=== PATIENT | female | born 2000 | race African-American/Black ===

== ENCOUNTER 2021-06-08 06:10 | Emergency (ER) | payer OTHER, SELFPAY ==
--- NOTE | ~2021-06-08 | XR_ITS ---
XR chest 1V portable DATE: 06/08/2021 07:52 INDICATION: Cough, fever TECHNIQUE: Portable AP chest on 06/04/2021 at 0748 hours COMPARISON: None FINDINGS: Normal heart size. No hilar or mediastinal enlargement. The lungs are clear of infiltrate o r consolidation. No pleural effusion or pulmonary vascular congestion or pneumothorax. Included skele zeeshan structures are unremarkable. IMPRESSION: Negative Reviewed, dictated and finalized at location A. IMPRESSION: Negative
[2021-06-08 06:15] VITALS: BP 118/51; PULSE 105; RESP 20; TEMP 38.2; O2SAT 96
[2021-06-08 07:24] VITALS: BP 115/85; PULSE 98; RESP 20; O2SAT 99
--- NOTE | 2021-06-08 07:42 | ED.GENADULT ---
HPI - General Adult General Chief complaint: Unspecified Stated complaint: just don't feel good Time Seen by Provider: 06/08/21 07:08 History of Present Illness HPI narrative: previously healthy 21 yo female presents to the ED for fever. She reports that she has had 2 days of fever, cough, congestion, bodyaches, and nausea. She tried OTC medications without significnat improvement. SHe has not had her COVID 19 vaccine. Related Data Allergies Allergy/AdvReac Type Severity Reaction Status Date / Time No Known Allergies Allergy Verified 06/08/21 06:18 Review of Systems Review of Systems: All systems reviewed & are unremarkable except as noted in HPI and below Eyes: Eyes: Reports no additional eye complaints ENT: Denies otalgia Cardiovascular: Cardiovascular: Denies chest pain Gastrointestinal: Gastrointestinal: Denies diarrhea Genitourinary: Genitourinary: Reports no additional female genitourinary complaints [facility] Social History Social History (Updated 06/08/21 @ 17:22 by Vladimir Perry MD) Smoking status: Never smoker Exam Const: General: healthy appearing, no acute distress and alert Orientation/consciousness: patient oriented x3 HENMT: Head: normal to inspection Throat: posterior oropharynx normal and uvula midline Neck: Neck: normal visual inspection Resp: Effort & Inspection: normal respiratory effort Auscultation: clear to auscultation bilaterally, no rales, no rhonchi and no wheezes Cardio: Jugular venous distension: no JVD Rate: tachycardic Rhythm: regular rhythm Heart sounds: no murmurs GI: Inspection: non-distended GI Palp: Yes Soft to palpation and No Tenderness to palpation present (GI) Skin: General skin exam: normal color Neuro: General: patient oriented x3 and moves all extremities Speech: normal speech Extrem: General: no edema Psych: Appearance: well kempt Affect: normal affect Course Vital Signs Vital signs: Vital Signs Temperature 38.2 C H 06/08/21 06:15 Pulse Rate 105 H 06/08/21 06:15 Respiratory Rate 20 06/08/21 06:15 Blood Pressure 118/51 L 06/08/21 06:15 Pulse Oximetry 96 06/08/21 06:15 Temperature 37.7 C H 06/08/21 09:42 Pulse Rate 86 06/08/21 09:42 Respiratory Rate 16 06/08/21 09:42 Blood Pressure 110/68 06/08/21 09:42 Pulse Oximetry 100 06/08/21 09:42 Medical Decision Making MDM Narrative Medical decision making narrative: Likely COVID-19. Vitals stable. Medical Records Medical records reviewed: Yes I reviewed the external patient's medical records. Vital Signs Vital Signs: Vital Signs Temperature 38.2 C H 06/08/21 06:15 Pulse Rate 105 H 06/08/21 06:15 Respiratory Rate 20 06/08/21 06:15 Blood Pressure 118/51 L 06/08/21 06:15 Pulse Oximetry 96 06/08/21 06:15 Temperature 37.7 C H 06/08/21 09:42 Pulse Rate 86 06/08/21 09:42 Respiratory Rate 16 06/08/21 09:42 Blood Pressure 110/68 06/08/21 09:42 Pulse Oximetry 100 06/08/21 09:42 Lab Data Lab results reviewed: Yes I reviewed the patient's lab results. Labs: Lab Results 06/08/21 Range/Units 07:53 SARS-CoV-2 RNA (RT-PCR) Pending Strep Screen Presumptive Negative *(Reference Range: Negative)* Imaging Data Radiologist's impression: ITS Impressions Chest X-Ray 06/08/21 08:31 IMPRESSION: Negative Discharge Plan Discharge Clinical Impression: Suspected 2019-nCoV infection Patient Disposition: Home, Self-Care Condition: Stable Instructions: Antibiotic Form, COVID-19 (Coronavirus Disease 2019) (ED) Prescriptions: New methylprednisolone [Medrol ([place])] 4 mg tablets,dose pack See Rx Instructions .ROUTE .COMPLEX Qty: 21 RF: 0 Follow-up/Referrals: Frankie,Jacob Silveira MD [Primary Care Provider] -
[2021-06-08] MEDS: KETOROLAC (*BKC) 60 MG/2 ML VIAL IM (08:08)
[2021-06-08] MEDS: DEXAMETHASONE SOD PHOS INJ 4 MG/ML VIAL 10 MG IV PUSH (08:09)
--- NOTE | 2021-06-08 08:14 | PC.NURSE ---
strep culture sent to lab
[2021-06-08 09:42] VITALS: BP 110/68; PULSE 86; RESP 16; TEMP 37.7; O2SAT 100
[2021-06-08 16:43] LABS: SARS-CoV-2 RNA PCR Positive
== END 2021-06-08 09:48 | disposition home or self-care (01) ==
PROVIDERS: Emergency Provider Emergency Medicine; PCP Family Medicine
DX: U07.1 COVID-19 (principal)
CPT/HCPCS: 71045; 87081; 87880; 96372; 96374; 99284; C9803; J1100; J1885; U0003; U0005

== ENCOUNTER 2023-04-08 20:38 | Emergency (ER) | payer OTHER, SELFPAY ==
[2023-04-08 21:04] VITALS: BP 133/106; PULSE 109; RESP 20; TEMP 38.8; O2SAT 96
--- NOTE | 2023-04-08 21:42 | ED.URI ---
HPI - URI/Sore Throat General Chief Complaint: Upper Respiratory Infection Stated Complaint: upper resp Time Seen by Provider: 04/08/23 21:20 History of Present Illness HPI Narrative: Patient is a 23-year-old female here for evaluation of left ear pain, sore throat, postnasal drip x4 days. Patient states that she has attempted [id number] cold medicine without relief of her symptoms. States temperature was 102.4 at home. Last took Tylenol at 9 AM today. Home COVID test was negative. No cough, shortness of breath, leg swelling, abdominal pain, urinary symptoms. Related Data Allergies Allergy/AdvReac Type Severity Reaction Status Date / Time No Known Allergies Allergy Verified 04/08/23 21:21 Review of Systems Review of Systems: Gen: Denies fevers or chills Eyes: Denies eye pain or visual change ENT: Reports congestion, ear pain, sore throat Respiratory: Denies shortness of breath or cough CV: Denies chest pain or palpitations GI: Denies abdominal pain nausea, emesis or diarrhea : denies burning, urgency, frequency or hematuria Musculoskeletal: Denies back pain or muscle pain Neuro: Denies numbness, tingling, weakness or focal weakness Skin: Denies rash Except as documented, all other systems reviewed and negative PMFSH Social History Social History (Updated 06/08/21 @ 17:22 by Vladimir Perry MD) Smoking status: Never smoker Exam Narrative: APPEARANCE: Well appearing, no pain in distress, well-nourished. Head: Normocephalic and atraumatic. EYES: PERRLA/EOMI, conjunctivae clear NOSE: No nasal drainage EARS: Left TM is erythematous and bulging. Right TM TMs normal in appearance. No mastoid tenderness. External ear normal in appearance, no pain with movement of the tragus. THROAT: Oropharynx is clear. Mucous membranes are moist. NECK: Supple. No adenopathy, no masses. RESPIRATORY: Airway patent, respirations nonlabored. Clear to auscultation bilaterally, no rales, rhonchi, wheezing. CARDIOVASCULAR: Regular rate and rhythm without murmurs, rubs, or gallops. ABDOMINAL: Normoactive bowel sounds. Soft, nontender, nondistended. No rebound tenderness or guarding. MUSCULOSKELETAL: Extremities are warm and well-perfused. Moves all extremities well. No edema. NEURO: Normal speech. No focal neurologic deficits. SKIN: Skin is warm and dry. No rashes. PSYCHIATRIC: Normal affect/mood. Course Vital Signs Vital signs: Vital Signs Temperature 102 F H 04/08/23 21:04 Pulse Rate 109 H 04/08/23 21:04 Respiratory Rate 20 04/08/23 21:04 Blood Pressure 133/106 H 04/08/23 21:04 Pulse Oximetry 96 04/08/23 21:04 Oxygen Delivery Room Air 04/08/23 21:04 Temperature 100.3 F H 04/08/23 23:18 Pulse Rate 88 04/08/23 23:18 Respiratory Rate 20 04/08/23 23:18 Blood Pressure 115/77 04/08/23 23:18 Pulse Oximetry 97 04/08/23 23:18 Oxygen Delivery Room Air 04/08/23 21:04 MDM - URI/Sore Throat MDM Narrative Medical decision making narrative: 23-year-old female here for evaluation of upper respiratory infectious symptoms with a bulging erythematous TM on exam. No mastoid tenderness. She is febrile with a temp of 102 which did come down with Tylenol. Viral swabs negative. Strep test is negative. Will send home with treatment for otitis media. Lab Data Labs: Lab Results 04/08/23 Range/Units 21:27 Influenza A (RT-PCR) Negative (Negative) Influenza B (RT-PCR) Negative (Negative) RSV (RT-PCR) Negative (Negative) SARS-CoV-2 RNA (RT-PCR) Negative (Negative) Group A Strep (PCR) Not detected (Negative) Discharge Plan Discharge Clinical Impression: Upper respiratory infection, Otitis media Patient Disposition: Home, Self-Care Condition: Stable Instructions: Antibiotic Form, Earache (ED) Additional Instructions: Please take the antibiotic as directed as you likely have an ear infection. Your COVID, flu, strep test were negative. Al
[2023-04-08] MEDS: ACETAMINOPHEN 500 MG TABLET 1000 MG PO (21:45)
[2023-04-08 22:45] LABS: Influenza A QL RT-PCR Negative (Negative); Influenza B QL RT-PCR Negative (Negative); RSV RNA, RT-PCR Negative (Negative); SARS-CoV-2 RNA PCR Negative (Negative)
[2023-04-08 22:50] LABS: Strep Group A RT-PCR NOT DETECTED (Negative)
[2023-04-08 23:18] VITALS: BP 115/77; PULSE 88; RESP 20; TEMP 37.9; O2SAT 97
== END 2023-04-08 23:19 | disposition home or self-care (01) ==
PROVIDERS: Preventive Medicine Aerospace Medicine; Emergency Provider Physician Assistant; PCP Family Medicine
DX: J06.9 Acute upper respiratory infection, unspecified (principal); H66.92 Otitis media, unspecified, left ear; Z20.822 Contact with and (suspected) exposure to COVID-19
CPT/HCPCS: 87637; 87651; 99283; A9270